=== PATIENT | female | born 1965 ===

== ENCOUNTER 2019-01-29 16:22 | Emergency (ER) | payer BC, OTHER ==
[2019-01-29 16:55] VITALS: BP 122/67; PULSE 62; RESP 16; TEMP 98.8; O2SAT 98
--- NOTE | 2019-01-29 17:41 | ED PDOC ---
Lower Extremity Pain/Injury Time Seen by Provider: 01/29/19 16:53 Chief Complaint (Nursing): Lower Extremity Problem/Injury Chief Complaint (Provider): Lower Extremity Problem/Injury History Per: Patient History/Exam Limitations: no limitations Onset/Duration Of Symptoms: Other (1 month) Additional Complaint(s): 53 y/o female presents to the ED complaining of discomfort of the bottom of her foot for the past month. Approximately 1 year ago she stepped on glass that went through her shoe and stabbed her foot. Patient states she attempted to remove the glass but was only have taken out a portion as it broke. She states it has not bothered her until 1 month ago as she stands at work more often. Patient denies fever, chills, taking pain medication, or any elevated injuries. PMD: none provided Past Medical History Reviewed: Historical Data, Nursing Documentation, Vital Signs Vital Signs: Last Vital Signs Temp 98.8 F 01/29/19 16:54 Pulse 62 01/29/19 16:54 Resp 16 01/29/19 16:54 BP 122/67 01/29/19 16:54 Pulse Ox 98 01/29/19 16:54 - Medical History PMH: No Chronic Diseases - Family History Family History: States: Unknown Family Hx - Immunization History Hx Tetanus Toxoid Vaccination: Yes - Allergies Allergies/Adverse Reactions: Allergies Allergy/AdvReac Type Severity Reaction Status Date / Time No Known Allergies Allergy Verified 01/29/19 16:52 Review of Systems ROS Statement: Except As Marked, All Systems Reviewed And Found Negative Constitutional: Negative for: Fever, Chills Musculoskeletal: Positive for: Foot Pain Physical Exam - Reviewed Nursing Documentation Reviewed: Yes Vital Signs Reviewed: Yes - Physical Exam Appears: Positive for: No Acute Distress Extremity: Positive for: Normal ROM (with flexion/extension of left ankle.), Capillary Refill (<2 seconds), Other (Plantar aspect of with firm/sharp nodule with no erythema, edema or ecchymosis, no open wound. ) Neurological/Psych: Positive for: Awake, Alert, Oriented (x3) - ECG O2 Sat by Pulse Oximetry: 98 Medical Decision Making Medical Decision Making: Time:1731 Initial Impression: Initial Plan: -Foot x-ray -Podiatry consult 1753: X-ray review by me no foreign body fracture or dislocation appreciated. Case discuss with podiatry with recommendation to follow up in clinic for further evaluation. No open wound currently and minimal pain. Patient in agreement with plan. Stable for discharge. Scribe Attestation: Documented by Lisbeth Hines, acting as a scribe for Ness Garcia. Provider Scribe Attestation: All medical record entries made by the Scribe were at my direction and personally dictated by me. I have reviewed the chart and agree that the record accurately reflects my personal performance of the history, physical exam, medical decision making, and the department course for this patient. I have also personally directed, reviewed, and agree with the discharge instructions and disposition. Disposition - Clinical Impression Clinical Impression: Foreign body in foot, left - Patient ED Disposition Is Patient to be Admitted: No - Disposition Referrals: Podiatry Clinic [Outside] Disposition: Routine/Home Disposition Time: 17:59 Condition: STABLE Additional Instructions: Follow up in Podiatry clinic on Tuesday01/31/19 for further evaluation. Take Ibuprofen or Tylenol as needed for pain. Forms: [employer] ([place]ian), [facility] ED School/Work Excuse Print Language: PALAUAN
--- NOTE | 2019-01-29 18:31 | RAD ---
Date of service: 01/29/2019 PROCEDURE: Left Foot Radiographs. HISTORY: evaluate for foreign body, stepped on glass COMPARISON: None. TECHNIQUE: 3 views obtained. FINDINGS: BONES: Normal. No fracture. JOINTS: Normal. SOFT TISSUES: No visualized radiopaque foreign body. OTHER FINDINGS: None. IMPRESSION: No significant or acute findings to account for/ related to the clinical presentation. Additional benign and/or incidental findings described above.
== END 2019-01-29 17:59 | disposition home or self-care (01) ==
LOC: H.ER 16:22
DX: S90.852A Superficial foreign body, left foot, initial encounter (principal); W22.8XXA Striking against or struck by other objects, initial encounter